=== PATIENT | female | born 1985 | race Caucasian/White ===

== ENCOUNTER 2024-10-23 07:37 | Outpatient (CLI) | payer OTHER, SELFPAY ==
--- NOTE | ~2024-10-23 | MM_ITS ---
EXAMINATION: MM screening dae BI w rose HISTORY: Screening TECHNIQUE: Craniocaudal and mediolateral oblique 3-D tomosynthesis images were obtained and synthetic 2-D images were generated. CAD analysis was submitted and interpreted. COMPARISON: No prior mammogram is available for comparison at this institution. BREAST PARENCHYMAL COMPOSITION: Dense: The breasts are heterogeneously dense, which may obscure small masses FINDINGS: There is no evidence of suspicious mass, calcification, or architectural distortion to sugg est malignancy in either breast. There has been no suspicious interval change. IMPRESSION: 1. No mammographic evidence of malignancy. 2. Recommend routine screening mammography in one year. BI-RADS Category 1: Negative Reviewed, dictated and finalized at location A.
--- OUTSIDE RECORDS SUMMARY | 2024-10-23 07:59 | XMS_ITS | Encounter Summary ---
Author Organization [facility] Address [address] [place] [id number] Care Team Providers Care Shoe Stamper Name Role Phone Marisela Valencia MD Primary Care Provider [phone] Encounter Details Date Type Department Care Team (Late st Contact Info) Description 02/27/2019 [email or web address] Message Enc [facility] DEPARTMENT [address] [place] [id number] [place], [facility] Provider labs Social History Tobacco Use Types Packs/Day Years Used Date Smoking Tobacco: Never Smokeless Tobacco: Never Alcohol Use Standard Drinks/Week Comments No 0 (1 standard drink = 0.6 oz pur e alcohol) AUDIT-C Answer Date Recorded Frequency of Alcohol Consumption Never 08/15/2018 Average Number of Drinks Not on file 019 Frequency of Binge Drinking Not on file 07/19 PHQ-2 Answer Date Recorded PHQ-2 Score 0 08/08/2018 Comments No Sex and Gender Information Value Date Recorded Sex Assigned at Not on file Legal Sex Female 7:27 PM CDT Gender Identity Not on file Sexual Orientation Not on file documented as of this encounter Plan of Treatment Not on file documented as of this encounter Visit Diagnoses Not on filedocumented in this encounter Care Teams Shoe Stamper Relationship Specialty Start Date End Date Marisela Valencia MD PCP - General FAMILY PRACTICE 03/02/18 documented as of this encounter
--- OUTSIDE RECORDS SUMMARY | 2024-10-23 07:59 | XMS_ITS | Clinical Summary ---
Author Organization [facility] Address [facility] [place] [address] Care Team Providers Care Tile Professional Name Role Phone Marisela Valencia MD Primary Care Provider [phone] Allergies No known active allergies Medications Blood Glucose Monitoring Suppl (BLOOD GLUCOSE MONITOR SYSTEM) w/Device Kit 03/29/20 16 Active fluticasone propionate 50 MCG/ACT nasal spray 1-2 sprays by Nasal route daily. 06/19/19 15 Active Glucose Blood (BLOOD GLUCOSE TEST STRIPS) Strip Blood Glucose Test In Vitro StripUSE DIRECTED.[id number] , [facility] Instructions: Pt had been testing BS more than 2x/day because she was having episodes of not feeling well. Pt back on track now with bid checks. 03/29/20 16 Active Lancets Misc 03/29/20 16 Active BUSPIRONE 15 MG tabletIndicatio ns:Anxiety TAKE 1 TABLET BY MOUTH TWO TIMES DAILY 60 tablet 5 02/13/20 19 Active triamcinolone 0.1 % creamIndication s:Eczema, unspecified type Apply topically 2 (two) times daily. 45 g 1 03/05/20 19 Active Active Problems Problem Noted Date Diagnosed Date OCD (obsessive compulsive disorder) 11/15/2017 Elevated liver function tests 05/16/2017 Obesity 04/21/2017 Hyperlipidemia 11/15/2016 Easy bruising 03/30/2016 Low sodium levels 03/26/2016 Secondary amenorrhea 03/23/2016 Allergic rhinitis 06/18/2014 Eczema 06/18/2014 Acute upper respiratory infection 02/22/2014 Elevated ALT measurement 02/22/2014 Vitamin D deficiency 02/22/2014 Anxiety 01/22/2014 Resolved Problems Problem Noted Date Diagnosed Date Resolved Date Diabetes mellitus, type II ([facility]/HCC HHS/HCC) 6 08/15/2018 Immunizations Immunization Administration Dates Next Due Influenza Adult (Generic) 02/07/2019,02/16/2018 Family History Medical History Relation Comments Hypertension Father Hypertension Mother Alzheimers Other Cancer Other Kidney Disease Other cardiac disorder Other Relation Status Comments Father Mother Other Other Social History Tobacco Use Types Packs/Day Years [...] on file Sexual Orientation Not on file Last Filed Vital Signs Vital Sign Reading Time Taken Comments Blood Pressure 108/68 02/21/2019 8:43 AM [employer] Pulse 68 02/21/2019 8:43 AM [employer] Temperature 37.2 C (98.9 F) 03/02/2018 9:48 AM [employer] Respiratory Rate 18 02/21/2019 8:43 AM [employer] Oxygen Saturation 99% 02/21/2019 8:43 AM [employer] Inhaled Oxygen Concentration - - Weight 58.3 kg (128 lb 9.6 oz) 02/21/2019 8:43 A M [employer] Height 163.8 cm (5' 4.5) 02/21/2019 8:43 AM [employer] Body Mass Index 21.73 02/21/2019 8:43 AM [employer] Plan of Treatment Health Maintenance Due Date Last Done Comments Cervical Cancer Screening Pa p Smear (Age 30 to 64) Every 3 Years 1983 Annual Physical 1986 Hepatitis C 2001 DTaP, Tdap and Td Vaccines ( 1 - Tdap) 2002 Hepatitis B Vaccines (1 of 3 - 19+ 3-dose series) 2002 Cervical Cancer Screening Pa p with HPV Testing (Age 30 to 64) Every 5 Years 2013 Cervical Cancer Screening with HPV 2013 Mammogram Screening 2023 COVID-19 Vaccine (2023-2 5 season) 2023 HPV Vaccines Aged Out No longer eligi ble based on patient's age to complete this topic Meningococcal B Vaccine Aged Out No l onger eligible based on patient's age to complete this topic Meningococcal Vaccine Aged Out No long simi eligible based on patient's age to complete this topic Pneumococcal Vaccine: Pediat rics (0 to 5 Years) and At-Risk Patients (6 to 49 Years) Aged Out No longer eligible b ased on patient's age to complete this topic RSV Immunizations Under 20 Months Aged Out No longer eligible based on patient's age to complete this topic Insurance [employer] Care Teams Tile Professional Relationship Specialty Start Date End Date Marisela Valencia MD PCP - General FAMILY PRACTICE 03/02/18
== END 2024-10-23 07:38 | disposition home or self-care (01) ==
LOC: ANHIMG 07:57
PROVIDERS: Visit Provider Family Medicine
DX: Z12.31 Encounter for screening mammogram for malignant neoplasm of breast (principal)
CPT/HCPCS: 77063; 77067